=== PATIENT | male | born 1990 | race Caucasian/White ===

== ENCOUNTER 2017-12-15 01:07 | Emergency (ER) | payer SELFPAY ==
[~2017-12-15] VITALS: Ht 180.3 cm; Wt 104.3 kg
[2017-12-15 01:16] VITALS: Ht 180.3 cm; Wt 104.3 kg
[2017-12-15 01:43] VITALS: BP 151/81
== END 2017-12-15 02:23 | disposition other institution (70) ==
LOC: ED 01:07
DX: S60.212A Contusion of left wrist, initial encounter (principal); S05.11XA Contusion of eyeball and orbital tissues, right eye, initial encounter; Y04.0XXA Assault by unarmed brawl or fight, initial encounter; Y93.89 Activity, other specified; Y92.89 Other specified places as the place of occurrence of the external cause; Y99.8 Other external cause status
CPT/HCPCS: Q0092

== ENCOUNTER 2017-12-15 01:07 | Emergency (ER) | payer OTHER | END 2017-12-15 02:23 | disposition other institution (70) | LOC: ED 01:07 | DX: Z02.89 Encounter for other administrative examinations (principal) ==

== ENCOUNTER 2020-03-07 13:52 | Emergency (ER) | payer OTHER ==
[~2020-03-07] VITALS: Ht 180.3 cm; Wt 90.7 kg
[2020-03-07 13:55] VITALS: BP 141/93; Ht 180.3 cm; Wt 90.7 kg
== END 2020-03-07 15:24 | disposition home or self-care (01) ==
LOC: ED 13:52
DX: U07.1 COVID-19 (principal)
CPT/HCPCS: U0003